=== PATIENT | male | born 1995 | race Caucasian/White ===

== ENCOUNTER 2017-10-06 10:05 | Emergency (ER) | payer BC ==
[2017-10-06 10:17] VITALS: TEMP 99
--- NOTE | 2017-10-06 10:42 | EDPHY ---
General - History Smoking Status: Light smoker Narrative: CHIEF COMPLAINT: Left thumb laceration HISTORY OF PRESENT ILLNESS: Patient complains of left thumb laceration. Onset was just prior to arrival. He was cutting a palpable with a clean kitchen knife when he accidentally cut the left thumb finger tip on the volar side. Moderately painful with some tingling now. Minimal bleeding that stopped with pressure. No injury to the nail or nail bed. Tetanus is up-to-date. Pain is mild to moderate when you touch removed the thumb. It is minimal at rest. Does not radiate. No other associated complaints or modifying factors. TIME OF INJURY: Less than 1 hr prior to arrival TETANUS STATUS: Less than 6 years ago MEDICAL/SURGICAL/SOCIAL HISTORY: No medical history. Occasional smoker. REVIEW OF SYSTEMS: Ten systems reviewed and are negative unless otherwise noted in the HPI EXAMINATION General Appearance: Alert, no distress Head: normocephalic, atraumatic Cardiovascular: Pulses normal throughout. Symmetric radial pulses 2+. Brisk cap refill on the affected thumb Neurological: A&O, sensory symmetric, interossei strength symmetric. Thumb strength symmetric Skin: Warm and dry, no rash. 1 cm curvilinear laceration of the left thumb, ulnar side over the distal phalanx on the volar aspect. No pulsatile bleeding. No foreign body. No tendon injury. Superficial injury to the nail without injury to the nail bed. Extremities: Tenderness of the left thumb laceration. Full range of motion of the left hand and fingers without deficit. DIFFERENTIAL DIAGNOSES: Including but not limited to laceration, laceration with complication, laceration with tendon injury, laceration with foreign body MDM: 10:30 a.m. Laceration to the distal portion of the left thumb on the volar side. superficial injury to the nail. No nail bed injury. Full flexion, extension, abduction, adduction and opposition retain. The thumb has been anesthetized. Proceed with irrigation re-evaluation for closure. No indication for x-ray as this was a clean cut with a knife no foreign body present. 11:20 a.m. Patient re-evaluated. The wound has been copiously irrigated. I have been able to better visualize the wound at this time. He still has some sensation on the most ulnar aspect of the laceration, thus I have administered more lidocaine plain, 1%. 11:33 a.m. Thumb laceration has been repaired without complication. Tolerated well. Neurovascular intact post procedure. Wound care discussed. Return here in 7- 10 days for suture removal. PROCEDURE: Digital Block Indication: Finger laceration Consent: Verbal Location: Left thumb Anesthesia: Lidocaine 1% plain, 0.25% Marcaine plain, 5mL Description: Base of the finger was prepped. The above was infused without difficulty. Tolerated well. Good anesthesia. Complications: None PROCEDURE: Laceration repair Consent: Verbal Location: Left thumb, volar Length of repair: 1 cm Complexity: Simple Layer involvement: Single Anesthesia: Digital Irrigation: Extensive Debridement: None Procedure description: Following good anesthesia, the wound was copiously irrigated. Wound bed was explored with a sterile glove, and there is no foreign body noted. No obvious tendon injury. Wound borders were approximated well with good hemostasis. Tolerated well without complication. Suture/Staple material: 5-0 Prolene, 3 simple interrupted sutures Wound care: Routine as discussed Suture/Staple removal: 7-10 Days SUPERVISION: This patient was independently evaluated without direct involvement of or examination by the attending physician. ED Precautions: Worsening pain. Erythema, edema, cyanosis, pallor, paresthesia or anesthesia. (Oliver Arambula) Discussion: The patient was evaluated and managed by the Physician Metal Dresser/ Nurse Practitioner. My co-signature indicates that I have reviewed this chart and I agree with the findings and plan of care as documented. I am the secondary supervising physician. (Jazmine Carrasquillo) - Objective Vital Signs: Initial Vital Signs Temperature (C) 37.2 C 10/06/17 10:16 Heart Rate 99 10/06/17 10:16 Respiratory Rate 18 10/06/17 10:16 Blood Pressure 157/99 H 10/06/17 10:16 O2 Sat (%) 97 10/06/17 10:16 O2 Delivery Mode Room Air Allergies/Adverse Reactions: No Known Allergies Allergy (Unverified 10/06/17 10:16) Departure - Departure Disposition: Home, Routine, Self-Care Clinical Impression: Laceration of left thumb with damage to nail Condition: Good Instructions: Care For Your Stitches (ED), Laceration (ED), Finger Laceration ( ED) Additional Instructions: 1. Daily wound care as discussed 2. ED precautions as discussed 3. Return to emergency department in 7-10 days for suture removal Referrals: Physician,Emergency Dept, [Medical Doctor] - As per Instructions (7-10 days for suture removal)
[2017-10-06 11:46] VITALS: BP 150/85; PULSE 88; RESP 16; O2SAT 96
== END 2017-10-06 11:47 | disposition home or self-care (01) ==
PROC: 0HQGXZZ Repair Left Hand Skin, External Approach (ICD-10-PCS; principal; 2017-10-06)
DX: S61.012A Laceration without foreign body of left thumb without damage to nail, initial encounter (principal); F17.200 Nicotine dependence, unspecified, uncomplicated; W26.0XXA Contact with knife, initial encounter

== ENCOUNTER 2017-11-15 00:49 | Emergency (ER) | payer BC ==
[2017-11-15 01:07] VITALS: TEMP 97.9
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
[2017-11-15] MEDS ORDERED: AMOXICILLIN/CLAVULANATE POT 875/125 MG TAB PO ONE (01:18)
[2017-11-15 02:54] VITALS: BP 128/79; PULSE 88; RESP 18; O2SAT 96
== END 2017-11-15 02:54 | disposition home or self-care (01) ==
LOC: EDUNIT#
DX: S61.411A Laceration without foreign body of right hand, initial encounter (principal); S66.911A Strain of unspecified muscle, fascia and tendon at wrist and hand level, right hand, initial encounter; F10.129 Alcohol abuse with intoxication, unspecified; F17.200 Nicotine dependence, unspecified, uncomplicated; Y04.0XXA Assault by unarmed brawl or fight, initial encounter

== ENCOUNTER → 2018-11-06 | Outpatient (CLI) | payer BC | LOC: FIMAGING 17:24 | PROVIDERS: ATTEND Nurse Practitioner Family | DX: R07.1 Chest pain on breathing (principal) ==